=== PATIENT | male | born 1955 | race Caucasian/White ===

== ENCOUNTER 2023-02-28 11:50 | Day surgery (SDC) | payer MEDICARE ==
[~2023-02-28] VITALS: Ht 172.7 cm; Wt 72.6 kg
[~2023-02-28 11:50] MED LIST: ASPI81TA26 PO; ATOR1TAB21 PO; ATOR40TA75 PO; BAYE325T12 PO; CENT1TAB PO; EQL50TAB2 PO; ESOM0.1C PO; FLAX10002 PO; GABA600T4 PO; HUMA100I3 SC; HYDR-3490 PO; IRON27TA2 PO; LANTINJ4 SC; LISI20TA35 PO; LISI40TA4 PO; MAGN250T7 PO; METF10004 PO; NEUR300C PO; NOXI1TAB PO; NS 1,000 ML IV ONE; TRUL0.5I SC; VITA100093 PO; VITATAB26 PO
[2023-02-28] MEDS ORDERED: fentaNYL 100 MCG/2 ML INJECTION As Ordered ONE (13:29)
[2023-02-28] MEDS ORDERED: LIDOCAINE 2% 100MG/5ML SDV (FOR ANES.) As Ordered ONE (13:29)
[2023-02-28] MEDS ORDERED: propofoL 500 MG/50 ML VIAL As Ordered ONE (13:29)
[2023-02-28 13:42] VITALS: TEMP 97
[2023-02-28 14:00] VITALS: BP 96/61; O2SAT 97
== END 2023-02-28 14:12 | disposition home or self-care (01) ==
LOC: M OPP 11:50
PROVIDERS: ATTEND Internal Medicine Gastroenterology
DX: D50.9 Iron deficiency anemia, unspecified (principal); K22.89 Other specified disease of esophagus; K20.90 Esophagitis, unspecified without bleeding; E11.9 Type 2 diabetes mellitus without complications; I10 Essential (primary) hypertension; Z79.84 Long term (current) use of oral hypoglycemic drugs; Z79.4 Long term (current) use of insulin; Z79.899 Other long term (current) drug therapy
CPT/HCPCS: 43239; 88305; J3010

== ENCOUNTER → 2023-03-12 | Outpatient (REF) | payer MEDICARE ==
[~2023-03-12] MED LIST changes: -NS 1,000 ML IV ONE
== END ==
LOC: M LAB REF 13:56
PROVIDERS: ATTEND Internal Medicine Hematology & Oncology
DX: D50.9 Iron deficiency anemia, unspecified (principal)

== ENCOUNTER 2025-03-16 12:03 | Outpatient (CLI) | payer MEDICARE ==
[~2025-03-16] VITALS: Ht 170.2 cm; Wt 73.0 kg
[~2025-03-16 12:03] MED LIST changes: +ALBUTEROL SULFATE 2.5 MG/0.5 ML INH CONCENTRATE NEB SOLN INH PRN; -BAYE325T12 PO; +BAYE325T2 PO; +EPINEPHrine INJ 1 MG/ML 1ML AMP IM PRN; -EQL50TAB2 PO; -ESOM0.1C PO; +ESOM20CA2 PO; +GABA-1490 PO; -GABA600T4 PO; +LISI40TA10 PO; -LISI40TA4 PO; +VITA1TAB82 PO; +diphenhydrAMINE 50 MG/ML VIAL IV PRN
[2025-03-16 12:30] VITALS: BP 131/88; O2SAT 99
[2025-03-16] MEDS: FERRIC CARBOXYMALTOSE 750 MG (VIAL MATE) IN 100ML NS IV ONE (12:40)
[2025-03-16 13:25] VITALS: BP 108/73; O2SAT 98
== END 2025-03-16 13:25 | disposition home or self-care (01) ==
LOC: M INFU 12:03
DX: D50.9 Iron deficiency anemia, unspecified (principal)
CPT/HCPCS: 96365; J1439

== ENCOUNTER 2025-03-23 12:40 | Outpatient (CLI) | payer MEDICARE ==
[~2025-03-23] VITALS: Ht 172.7 cm; Wt 72.7 kg
[2025-03-23 13:00] VITALS: BP 122/71; O2SAT 99
[2025-03-23] MEDS: FERRIC CARBOXYMALTOSE 750 MG (VIAL MATE) IN 100ML NS IV ONE (13:08)
[2025-03-23] MEDS ORDERED: TRUL10IN SC (13:12)
[2025-03-23 13:45] VITALS: BP 132/67; O2SAT 99
== END 2025-03-23 13:00 | disposition home or self-care (01) ==
LOC: M INFU 12:40
DX: D50.9 Iron deficiency anemia, unspecified (principal)
CPT/HCPCS: 96365; J1439